=== PATIENT | female | born 1980 | race Caucasian/White ===

== ENCOUNTER 2017-08-10 12:46 | Emergency (ER) | payer OTHER ==
[~2017-08-10] VITALS: Ht 175.3 cm; Wt 65.8 kg
--- NOTE | 2017-08-10 13:25 | ED UPPER/LOWER EXTREMITY COMPL ---
History of Present Illness General Chief Complaint: Lower Extremity Problems Stated Complaint: L KNEE PAIN, UKO Source: patient Exam Limitations: no limitations Vital Signs & Intake/Output Vital Signs & Intake/Output Vital Signs Date Time Temp Pulse Resp B/P B/P Pulse O2 O2 Flow FiO2 Mean Ox Delivery Rate 08/10 1557 98.2 87 18 123/74 98 Room Air 08/10 1421 98.5 83 18 128/70 96 Room Air 08/10 1301 98.4 96 20 116/84 98 Room Air Allergies Coded Allergies: No Known Allergies (08/10/17) Reconcile Medications Meloxicam (Mobic) 15 MG TABLET 1 TAB PO DAILY PRN pain Triage Note: C/O LEFT KNEE PAIN SINCE FRIDAY. DENIES INJURY Triage Nurses Notes Reviewed? yes Onset: Gradual Duration: day(s): Timing: recent history Severity: moderate Pain/Injury Location: Left: Knee. Method of Injury: unknown Modifying Factors: Worsens With: movement. : No Patient currently breastfeeds: No HPI: 37-year-old female presents emergency department complaining of left knee pain 4 days. Patient states that pain has been gradually worsening, no relief with Advil. Patient does not recall trauma or inciting event prior to onset of pain. Pain described as medial left knee pain, no radiation. Pain is not associated with swelling, bruising, bleeding, numbness. Patient works as a [employer] and is on her feet a lot at work however no known injury at work. (Renée Zamora) Past History Travel History Traveled to [place] past 21 day No Medical History Any Pertinent Medical History? see below for history Respiratory: asthma Surgical History Surgical History: non-contributory Psychosocial History What is your primary language Wallisian Tobacco Use: Never used ETOH Use: denies use Illicit Drug Use: denies illicit drug use Family History Hx Contributory? No (Renée Zamora) Review of Systems Review of Systems Constitutional: Reports: no symptoms. EENTM: Reports: no symptoms. Respiratory: Reports: no symptoms. Cardiovascular: Reports: no symptoms. Gastrointestinal/Abdominal: Reports: no symptoms. Genitourinary: Reports: no symptoms. Musculoskeletal: Reports: see HPI. Skin: Reports: no symptoms. Neurological/Psychological: Reports: no symptoms. Hematologic/Endocrine: Reports: no symptoms. Immunological: Reports: no symptoms. All Other Systems: Reviewed and Negative (Yi KIMBROUGH,Renée James) Physical Exam Physical Exam General Appearance: well developed/nourished, no apparent distress, alert, awake Head: atraumatic, normal appearance Eyes: Bilateral: normal appearance. Ears, Nose, Throat: hearing grossly normal Neck: normal inspection, supple, full range of motion Cardiovascular/Respiratory: normal peripheral pulses, no respiratory distress Peripheral Pulses: 2+ dorsalis pedis (L) Back: normal inspection, normal range of motion Leg Left: normal range of motion, normal inspection Leg Right: normal range of motion, normal inspection Hip Left: normal range of motion, normal inspection Hip Right: normal range of motion, normal inspection Knee Left: TENDERNESS TO MEDIAL KNEE, PAIN WITH VARUS STRESS, NO GROSS LIGAMENT LAXITY Knee Right: normal range of motion, normal inspection Foot Left: normal inspection, normal range of motion Foot Right: normal inspection, normal range of motion Neurologic/Tendon: normal sensation, normal motor functions, normal tendon functions Skin: intact, normal color, warm/dry (Yi KIMBROUGH,Renée James) Progress Differential Diagnosis: arterial insufficiency, contusion, DVT, fracture, sprain , tendon injury, PHLEBITIS, BAKERS CYST Plan of Care: Orders Procedure Date/time Status URINE 08/10 1339 Complete Laboratory Tests 08/10/17 1353: Urine Test NEGATIVE Spoke with Dr. Uribe regarding this patient. He recommends f/u in office. He states that the immobilization is not necessary at this time however HUAN rap is reasonable therapy. No further imaging necessary here in the emergency department. These findings were discussed with the patient. She was prescribed meloxicam to take regarding her pain. She will call orthopedics office during the week for follow-up. Patient is ambulating here in the emergency Department without difficulty. Distal pulses are intact. The patient agrees with the plan of care. Diagnostic Imaging: Viewed by Me: Radiology Read. Discussed w/RAD: Radiology Read. Radiology Impression: PATIENT: KUMAR MCBRIDE PRESENT AGE: 37 PATIENT ACCOUNT NO: [id number] : 80 LOCATION: [facility] ORDERING PHYSICIAN: Renée KIMBROUGH SERVICE DATE: 08/10/17-1339 EXAM TYPE: RAD - XRY-KNEE COMPLETE LEFT EXAMINATION: XR KNEE, LEFT CLINICAL INFORMATION: Fall, pain COMPARISON: None TECHNIQUE: 5 views of the left knee. FINDINGS: No acute fracture or joint effusion. Alignment is anatomic. Joint spaces are well maintained. There are transverse lines in proximal tibial metadiaphysis which could represent stress lines/stress fractures, although the location is not usual. Clinical correlation with history of repetitive trauma is suggested. No abnormal soft tissue calcification. IMPRESSION: No acute fracture or dislocation. Transverse linear lines in proximal tibial metadiaphysis could represent stress lines or stress fractures. Clinical correlation is suggested. DICTATED BY: Jameson Brewer MD DATE/TIME DICTATED:08/10/171430 MATERIALS HANDLER:DARRELL DATE/TIME TRANSCRIBED:08/10/171430 CONFIDENTIAL, DO NOT COPY WITHOUT APPROPRIATE AUTHORIZATION. <Electronically signed in Other Vendor System> SIGNED BY: Jameson Brewer MD 08/10/171437 (Yi KIMBROUGH,Renée James) Departure Departure Disposition: HOME OR SELF CARE Condition: Stable Clinical Impression Primary Impression: Knee pain Qualifiers: Chronicity: acute Laterality: left Qualified Code: M25.562 - Pain in left knee Secondary Impressions: Stress fracture Qualifiers: Encounter type: initial encounter Stress fracture site: tibia Laterality: left Qualified Code: M84.362A - Stress fracture, left tibia, initial encounter for fracture Referrals: Zane MILES,Dominick Lundberg (PCP/Family) Rony MILES,Mario Carpio Additional Instructions: Take meloxicam as prescribed as needed for pain. Wear Huan wrap for compression as needed. Apply ice intermittently. Follow-up with orthopedic physician as discussed for further evaluation. Return with any worsening symptoms or concerns. Please note that there might be incidental findings in your evaluation that are unrelated to the current emergency department visit. Please notify your primary care doctor about this emergency department visit in order to obtain and review all of the testing performed so that these incidental findings can be monitored as needed. If you had an x-ray performed, please understand that some fractures may not be seen on the initial set of x-rays. If your symptoms persist you might need a repeat set of x-rays to check for such a fracture. If you had a laceration evaluated, please understand that foreign bodies such as glass or wood may not be visible to the naked eye or on plain x-rays. If the wound becomes red, swollen, increasingly more painful or if there is any drainage from the wound, please have it reevaluated by a physician for the possibility of a retained foreign body. If you're unable to follow up as outlined in the discharge instructions please return to the emergency department. Thank you for choosing the [facility] Emergency Department for your care. It was a pleasure to serve you today. Departure Forms: Customer Survey General Discharge Information Prescriptions: Current Visit Scripts Meloxicam (Mobic) 1 TAB PO DAILY PRN pain #15 TAB (Yi KIMBROUGH,Renée James) PA/CYANIDE POT HARDENER Co-Sign Statement Statement: ED Attending supervision documentation- [] I saw and evaluated the patient. I have also reviewed all the pertinent lab results and diagnostic results. I agree with the findings and the plan of care as documented in the PA's/CYANIDE POT HARDENER's documentation. [X] I have reviewed the ED Record and agree with the PA's/CYANIDE POT HARDENER's documentation. [] Additions or exceptions (if any) to the PAs/CYANIDE POT HARDENER's note and plan are summarized below: [] (Trevor MILES,Tate George)
--- NOTE | 2017-08-10 14:38 | RADIOLOGY REPORT ---
EXAMINATION: XR KNEE, LEFT CLINICAL INFORMATION: Fall, pain COMPARISON: None TECHNIQUE: 5 views of the left knee. FINDINGS: No acute fracture or joint effusion. Alignment is anatomic. Joint spaces are well maintained. There are transverse lines in proximal tibial metadiaphysis which could represent stress lines/stress fractures, although the location is not usual. Clinical correlation with history of repetitive trauma is suggested. No abnormal soft tissue calcification. IMPRESSION: No acute fracture or dislocation. Transverse linear lines in proximal tibial metadiaphysis could represent stress lines or stress fractures. Clinical correlation is suggested.
[2017-08-10] MEDS ORDERED: MOBIC15 M1 PO (15:39)
[2017-08-10 15:57] VITALS: BP 123/74
== END 2017-08-10 16:02 ==
LOC: ERH 12:46
DX: M84.362A Stress fracture, left tibia, initial encounter for fracture (principal); M25.562 Pain in left knee
CPT/HCPCS: 73562-LT; 81025